=== PATIENT | female | born 1965 | race Caucasian/White ===

== ENCOUNTER 2021-06-09 12:36 | Observation (INO) | payer BC, SELFPAY ==
[2021-06-09 13:31] VITALS: BP 86/57; PULSE 84; RESP 19; TEMP 36.6; O2SAT 98; BMI 33.6
--- NOTE | 2021-06-09 14:27 | XRR_ITS ---
PROCEDURE INFORMATION: Exam: XR Chest Exam date and time: 06/09/2021 2:27 PM Age: 55 years old Clinical indication: Other: AMS TECHNIQUE: Imaging protocol: XR of the chest. Views: 1 view. COMPARISON: No relevant prior studies available. FINDINGS: Lungs: Unremarkable. No consolidation. Pleural spaces: Unremarkable. No pleural effusion. No pneumothorax. Heart/Mediastinum: Unremarkable. No cardiomegaly. Bones/joints: Unremarkable. XR/XR chest 1V portable [id number] IMPRESSION: No acute findings.
[2021-06-09 17:06] LABS: Basophils % 0.4 %; Eosinophils % 0.1 %; Hematocrit 35.4 % (37.0-47.0); Hemoglobin 11.6 g/dL (11.5-15.3); Lymphocytes # 1.7 10^3/uL (0.8-4.8); Lymphocytes % 15.4 %; Mean Corpuscular HGB Conc 32.8 g/dL (30.0-36.0); Mean Corpuscular Hemoglobin 28.6 pg (28.0-34.0); Mean Corpuscular Volume 87.2 fL (81-99); Mean Platelet Volume 10.2 fL (7.4-10.4); Monocytes # 0.6 10^3/uL (0.2-0.9); Monocytes % 5.3 %; Neutrophils # 8.56 10^3/uL (1.8-7.7); Neutrophils % 78.5 %; Nucleated Red Blood Cells % 0 %; Platelet Count 353 10^3/cmm (130-400); Red Blood Count 4.06 10^6/uL (4.1-5.3); Red Cell Distribution Width 13.1 % (12.1-15.1); White Blood Count 10.9 10^3/uL (4.0-10.0)
[2021-06-09 18:10] LABS: Alanine Aminotransferase 10 U/L (0-33); Albumin Level 3.9 g/dL (3.5-5.2); Alkaline Phosphatase 88 IU/L (35-105); Anion Gap 24.4 (5-19); Aspartate Amino Transferase 17 U/L (0-32); Blood Urea Nitrogen 46 mg/dL (6-20); Calcium 8.4 mg/dL (8.5-10.5); Carbon Dioxide 16 mmol/L (22-29); Chloride 92 mmol/L (98-107); Globulin 3.2 g/dL (1.3-4.6); Glomerular Filtration Rate 10.2 mL/min (90-130); Glucose 73 mg/dL (65-115); Osmolality Calculated 276 mOsm/kg (285-295); Potassium 4.4 mmol/L (3.5-5.1); Sodium 128 mmol/L (136-145); Total Bilirubin 0.2 mg/dL (0.15-1.2); Total Protein 7.1 g/dL (6.6-8.7)
[2021-06-09 18:49] LABS: Lactic Sepsis W/Reflex 4.3 mmol/L (0.5-2.2)
[2021-06-09 18:50] LABS: Reflex Lactate Order REFLEX LACTIC ORDERD
[2021-06-09 19:14] VITALS: PULSE 96; RESP 17; O2SAT 96
--- NOTE | 2021-06-09 19:25 | W.ED.GENADLT ---
HPI - General Adult General: Chief complaint: General Medical Stated complaint: Zoning out, not sleeping, discombobulated Time Seen by Provider: 06/09/21 19:25 History of Present Illness: HPI narrative: 55-year-old female comes in today with complaints of urinary tract infection since . Son reports that patient had some episodes of confusion since , they had went to [place] ER and was diagnosed with a urinary tract infection. Patient was placed on Bactrim and recommended to follow-up. Patient for the last 2 days has had episodes of nausea and vomiting and worsening confusion at times. The son brought her in today due to these increased concerns. Patient at this time is alert and oriented and responds appropriately to questions. Patient has some emesis noticed in the basin. Patient reports that she has had worsening emesis last 2 days. Son is at bedside. Associated symptoms: Reports confusion, nausea and vomiting Review of Systems General: Reports: 10 or more systems reviewed and unremarkable except in HPI and below GI: Reports: nausea and vomiting Neuro: Reports: confusion Physical Exam Const: COMMON NORMALS: no acute distress and patient oriented x3 GENERAL APPEARANCE: cooperative HENMT: COMMON NORMALS: normocephalic, TM's normal bilaterally and Normal external nose present HEAD & SCALP: normal to inspection and normocephalic NOSE: Normal external nose present TYMPANIC MEMBRANE: TM's normal bilaterally MOUTH: Normal oral and palatal mucosa present THROAT: posterior oropharynx normal Eye: GENERAL EYE: appearance normal, both eyes and all related structures Neck/C-Spine: COMMON NORMALS: full ROM Lymph: LYMPHATIC: no lymphadenopathy noted Chest: COMMONS NORMALS: normal inspection of the chest Resp: COMMON NORMALS: normal respiratory effort EFFORT & INSPECTION: Yes able to speak in complete sentences Cardio: COMMON NORMALS: regular rate and regular rhythm RATE: regular rate RHYTHM: regular rhythm GI: COMMON NORMALS: non-tender : COMMON NORMALS: Yes no CVA tenderness BLADDER/KIDNEY EXAM: Yes no CVA tenderness Back/Pelvis: COMMON NORMALS: no CVA tenderness and thoracic and lumbar spine normal to inspection Extremity: COMMON NORMALS: normal to inspection Neuro: COMMON NORMALS: patient oriented x3 and moves all extremities Psych: COMMON NORMALS: mental status grossly normal and cooperative Skin: COMMON NORMALS: no rashes or lesions noted GENERAL SKIN EXAM: no rashes or lesions noted Course Vital Signs: Vital signs: Vital Signs Temperature 97.8 F 06/09/21 13:31 Pulse Rate 97 06/09/21 22:02 Respiratory Rate 8 L 06/09/21 22:02 Blood Pressure 134/78 06/09/21 22:02 Pulse Oximetry 95 06/09/21 22:02 MDM - General Adult MDM Narrative: Medical decision making narrative: Patient comes in today for complaints of nausea and vomiting for the last 2 days. Patient has been ill with a urinary tract infection since last . Patient was started on Bactrim at another emergency room on . Patient has a history of diabetes mellitus and neuropathy. On exam we do note patient has emesis in a basin next to her. Respirations are even lungs are clear to auscultation no CVA tenderness. Abdomen soft nontender. Differential diagnosis includes but not limited to urosepsis, urinary tract infection, dehydration. Laboratory values showed a 10,000 white count, creatinine was up to 4.5, lactate was 4.3. Patient was given 1 g of Rocephin, and 1 L of IV fluids and monitored. Patient had a Quiros catheter established for maintenance. Reviewed exam with Dr. Moncada who agreed to admission the patient for further treatment. Patient needs IV fluids appropriate antibiotics and repeat labs Lab Data: Labs: Lab Results 06/09/21 06/09/21 06/09/21 Range/Units 16:55 16:55 16:55 WBC 10.9 H (4.0-10.0) 10^3/ uL RBC 4.06 L (4.1-5.3) 10^6/u L Hgb 11.6 (11.5-15.3) g/dL Hct 35.4 L (37.0-47.0) % MCV 87.2 (81-99) fL MCH 28.6 (28.0-34.0) pg MCHC 32.8 (30.0-36.0) g/dL RDW 13.1 (12.1-15.1) % Plt Count 353 (130-400) 10^3/c mm MPV 10.2 (7.4-10.4) fL Neut % (Auto) 78.5 % Lymph % (Auto) 15.4 % [place] % (Auto) 5.3 % Eos % (Auto) 0.1 % Baso % (Auto) 0.4 % Neut # (Auto) 8.56 H (1.8-7.7) 10^3/u L Lymph # (Auto) 1.7 (0.8-4.8) 10^3/u L [place] # (Auto) 0.6 (0.2-0.9) 10^3/u L Eos # (Auto) 0.0 (0.0-0.8) 10^3/u L Baso # (Auto) 0.0 (0.0-0.1) 10^3/u L Nucleated RBC % (a uto) 0 % Nucleated RBCs # 0.0 /100WBC Specimen Type Sample Site ABG pH (7.35-7.45) ABG pCO2 (35-45) mmHg ABG pO2 (80.0-100.0) mmH g ABG HCO3 (22-26) mmol/L ABG Base Excess (-2.0-2.0) mmol/ L Reagan Test Hematocrit (37-47) % O2 Delivery Device FiO2 % Dry Cell Assembly Machine Tender ID Sodium 128 L (136-145) mmol/L Potassium 4.4 (3.5-5.1) mmol/L Chloride 92 L (98-107) mmol/L Carbon Dioxide 16 L (22-29) mmol/L Anion Gap 24.4 H (5-19) BUN 46 H (6-20) mg/dL Creatinine 4.5 H (0.5-0.9) mg/dL GFR Calculation 10.2 L (90-130) mL/min Glucose 73 (65-115) mg/dL Calculated Osmolal ity 276 L (285-295) mOsm/k g Lactic Acid 4.3 H* (0.5-2.2) mmol/L Lactic Acid (Sepsi s) (0.5-2.2) mmol/L Calcium 8.4 L (8.5-10.5) mg/dL Total Bilirubin 0.2 (0.15-1.2) mg/dL AST 17 (0-32) U/L ALT 10 (0-33) U/L Alkaline Phosphata se 88 (35-105) IU/L Total Protein 7.1 (6.6-8.7) g/dL Albumin 3.9 (3.5-5.2) g/dL Globulin 3.2 (1.3-4.6) g/dL Urine Color (Yellow) Urine Appearance (CLEAR) Urine pH (5-7) Ur Specific Gravit y (1.005-1.030) Urine Protein (Negative) Urine Glucose (UA) (Normal) Urine Ketones (Negative) Urine Blood (Negative) Urine Nitrate (Negative) Urine Bilirubin (Negative) Urine Urobilinogen (Negative) mg/dL Ur Leukocyte Ceci ase (Negative) Urine RBC (0-2) /hpf Urine WBC (0-5) /hpf Ur Squamous Epith Cells (0-5) /hpf Amorphous Sediment /hpf Urine Bacteria (NONE) /hpf Hyaline Casts /lpf Coarse Granular Ca sts /lpf Urine Mucus /hpf 06/09/21 06/09/21 06/09/21 Range/Units 20:35 21:00 21:10 WBC (4.0-10.0) 10^3/ uL RBC (4.1-5.3) 10^6/u L Hgb (11.5-15.3) g/dL Hct (37.0-47.0) % MCV (81-99) fL MCH (28.0-34.0) pg MCHC (30.0-36.0) g/dL RDW (12.1-15.1) % Plt Count (130-400) 10^3/c mm MPV (7.4-10.4) fL Neut % (Auto) % Lymph % (Auto) % [place] % (Auto) % Eos % (Auto) % Baso % (Auto) % Neut # (Auto) (1.8-7.7) 10^3/u L Lymph # (Auto) (0.8-4.8) 10^3/u L [place] # (Auto) (0.2-0.9) 10^3/u L Eos # (Auto) (0.0-0.8) 10^3/u L Baso # (Auto) (0.0-0.1) 10^3/u L Nucleated RBC % (a uto) % Nucleated RBCs # /100WBC Specimen Type Arterial Sample Site Brachial, right ABG pH 7.28 L (7.35-7.45) ABG pCO2 39.3 (35-45) mmHg ABG pO2 77.1 L (80.0-100.0) mmH g ABG HCO3 18.6 L (22-26) mmol/L ABG Base Excess -7.6 L (-2.0-2.0) mmol/ L Reagan Test Pos Hematocrit 38.5 (37-47) % O2 Delivery Device Room air FiO2 21.0 % Dry Cell Assembly Machine Tender ID yorna Sodium (136-145) mmol/L Potassium (3.5-5.1) mmol/L Chloride (98-107) mmol/L Carbon Dioxide (22-29) mmol/L Anion Gap (5-19) BUN (6-20) mg/dL Creatinine (0.5-0.9) mg/dL GFR Calculation (90-130) mL/min Glucose (65-115) mg/dL Calculated Osmolal ity (285-295) mOsm/k g Lactic Acid (0.5-2.2) mmol/L Lactic Acid (Sepsi s) 3.2 H (0.5-2.2) mmol/L Calcium (8.5-10.5) mg/dL Total Bilirubin (0.15-1.2) mg/dL AST (0-32) U/L ALT (0-33) U/L Alkaline Phosphata se (35-105) IU/L Total Protein (6.6-8.7) g/dL Albumin (3.5-5.2) g/dL Globulin (1.3-4.6) g/dL Urine Color Hope (Yellow) Urine Appearance Clear (CLEAR) Urine pH 5 (5-7) Ur Specific Gravit y 1.020 (1.005-1.030) Urine Protein 1+ H (Negative) Urine Glucose (UA) Norm (Normal) Urine Ketones Negative (Negative) Urine Blood Neg (Negative) Urine Nitrate Positive H (Negative) Urine Bilirubin 2+ H (Negative) Urine Urobilinogen 4 H (Negative) mg/dL Ur Leukocyte Ceci ase Negative (Negative) Urine RBC 0-4 H (0-2) /hpf Urine WBC 0-4 H (0-5) /hpf Ur Squamous Epith Cells 0-4 H (0-5) /hpf Amorphous Sediment 1+ /hpf Urine Bacteria Trace (NONE) /hpf Hyaline Casts 0-4 H /lpf Coarse Granular Ca sts 0-4 H /lpf Urine Mucus Trace /hpf Discharge Plan Discharge Patient Disposition: Placed in Observation Clinical Impression: KYE (acute kidney injury) UTI (urinary tract infection) Qualifiers: Urinary tract infection type: acute cystitis Hematuria presence: without hematuria Qualified Code(s): N30.00 - Acute cystitis without hematuria Coding Level of Care Code ED [employer] Driver for [employer]g Fwd Exam Comprehensive
--- NOTE | 2021-06-09 19:26 | CTR_ITS ---
PROCEDURE INFORMATION: Exam: CT Abdomen And Pelvis Without Contrast Exam date and time: 06/09/2021 7:26 PM Age: 55 years old Clinical indication: Other: [place]; Additional info: [place], urosepesis TECHNIQUE: Imaging protocol: Computed tomography of the abdomen and pelvis without contrast. Radiation optimization: All CT scans at this facility use at least one of these dose optimization techniques: automated exposure control; mA and/or kV adjustment per patient size (includes targeted exams where dose is matched to clinical indication); or iterative reconstruction. COMPARISON: CR XR chest 1V portable [id number] 06/09/2021 2:44 PM RADIATION DOSE METRICS: Total DLP (mGy-cm): 1511.94 FINDINGS: Lungs: Bilateral pulmonary nodularity with largest finding measuring 5 mm. Mediastinal space: Mild thickening of distal esophagus can represent inflammatory change and/or small hiatal hernia. Liver: Normal. No mass. Gallbladder and bile ducts: Normal. No calcified stones. No ductal dilation. Pancreas: Normal. No ductal dilation. Spleen: Normal. No splenomegaly. Adrenal glands: Low-density nodule measuring 2 cm at right adrenal gland is consistent with adenoma. Kidneys and ureters: Normal. No hydronephrosis. Stomach and bowel: Unremarkable. No obstruction. No mucosal thickening. Appendix: No evidence of appendicitis. Intraperitoneal space: Unremarkable. No free air. No significant fluid collection. Vasculature: Vascular calcifications are noted. No abdominal aortic aneurysm. Lymph nodes: Unremarkable. No enlarged lymph nodes. Urinary bladder: Unremarkable as visualized. Reproductive: Unremarkable as visualized. Bones/joints: No acute fracture. Soft tissues: Unremarkable. CT/CT kidney stone [id number] IMPRESSION: Mild thickening of distal esophagus can represent inflammatory change and/or small hiatal hernia. Right adrenal adenoma. Bilateral pulmonary nodularity; For patients at low risk (minimal or absent history of smoking and of other known risk factors), no routine follow-up is indicated. For patients at high risk (history of smoking or of other known risk factors), consider optional CT Chest at 12 months. (Reference: Armen) References: gus Gomez al. Guidelines for Management of Incidental Pulmonary Nodules Detected on CT Images: From the Fleischner Society 2017. Radiology. 2017;284(1):228-243. COMMENTS: Consistent with the [place] [employer]'s Incidental Findings Committee white paper (J Am Nicolasa Radiol 2017): For any incidental adrenal lesion greater than 1 cm but less than 4 cm classified in this report as benign, likely benign, or containing fat (including classification as an adenoma or myelolipoma), no follow-up imaging is recommended per consensus recommendations based on imaging criteria. Further lab evaluation could be pursued if warranted based on clinical findings. Radiation Dose CTDIVOL = (mGy): DLP = 1511.94 (mGy-cm)
--- NOTE | 2021-06-09 19:46 | CTR_ITS ---
PROCEDURE INFORMATION: Exam: CT Head Without Contrast Exam date and time: 06/09/2021 7:46 PM Age: 55 years old Clinical indication: Altered mental status/memory loss; Confusion or disorientation TECHNIQUE: Imaging protocol: Computed tomography of the head without contrast. Radiation optimization: All CT scans at this facility use at least one of these dose optimization techniques: automated exposure control; mA and/or kV adjustment per patient size (includes targeted exams where dose is matched to clinical indication); or iterative reconstruction. COMPARISON: No relevant prior studies available. RADIATION DOSE METRICS: Total DLP (mGy-cm): 1941.04 FINDINGS: Brain: No hemorrhage. Unremarkable white matter. No mass effect. Mild diffuse cerebral atrophy. Cerebral ventricles: No ventriculomegaly. Paranasal sinuses: Visualized sinuses are unremarkable. No fluid levels. Mastoid air cells: Visualized mastoid air cells are well aerated. Bones/joints: Unremarkable. No acute fracture. Soft tissues: Unremarkable. CT/CT head wo con* [id number] IMPRESSION: No acute intracranial abnormality. Radiation Dose CTDIVOL = (mGy): DLP = 1941.04 (mGy-cm)
[2021-06-09] MEDS: sodium chloride 0.9% 1,000 ML 999 ML IV (19:47)
[2021-06-09] MEDS: cefTRIAXone 1,000 MG in sodium chloride 0.9% (plus) 50 ML 100 MG IV (19:49)
[2021-06-09 20:47] LABS: ABG PCO2 39.3 mmHg (35-45); ABG PH Result 7.28 (7.35-7.45); Arterial Blood Gas Hematocrit 38.5 % (37-47); Base Excess ABG -7.6 mmol/L (-2.0-2.0); Blood Gas Allen Test Pos; Blood Gas Sample Site Brachial, right; Blood Gas Sample Type Arterial; HCO3 ABG 18.6 mmol/L (22-26); Oxygen Device ROOM AIR; PO2 ABG 77.1 mmHg (80.0-100.0)
[2021-06-09] MEDS: ondansetron 2 mg/ML SDV 2 mL 4 MG IVP (21:00)
[2021-06-09 21:15] LABS: Add Urine Microscopic? YES; Amorphous Sediment Urine 1+ /hpf; Bacteria Urine TRACE /hpf; Bilirubin Urine 2+ (Negative); Blood Urine Neg (Negative); Glucose Urine UA Norm (Normal); Hyaline Casts Urine 0-4 /lpf; Ketones Urine Negative (Negative); Leukocyte Esterase Urine Negative (Negative); Mucus Urine TRACE /hpf; Nitrate Urine Positive (Negative); Protein Urine 1+ (Negative); RBC Urine 0-4 /hpf (0-2); Squamous Epithelial Cell Urine 0-4 /hpf (0-5); Urine Appearance Clear (CLEAR); Urine Color Orange (Yellow); Urobilinogen Urine 4 mg/dL (Negative); WBC Urine 0-4 /hpf (0-5); pH Urine 5 (5-7)
[2021-06-09 21:16] LABS: Add Urine Culture? No; Coarse Granular Casts Urine 0-4 /lpf
[2021-06-09 21:42] LABS: Lactic Acid level (Lactate) 3.2 mmol/L (0.5-2.2)
[2021-06-09 21:48] VITALS: BP 180/108; PULSE 88; RESP 16; O2SAT 98
[2021-06-09 22:02] VITALS: BP 134/78; PULSE 97; RESP 8; O2SAT 95
--- NOTE | 2021-06-09 22:34 | P.HP_ITS ---
Providers/Chief Complaint Primary Care Provider: DORA Abdi Chief Complaint: Zoning out, not sleeping, discombobulated History of Present Illness Laura Caal is a 55 year old female who was getting Bactrim for her UTI presente d today with chief complaint nausea, vomiting and confusion. Her symptoms started about 4 days ago, When Son Noticed That She Was Confused and kept staring at the ceiling. No strokelike symptoms were noticed. Her PCP started her on Bactrim for UTI which she has been taking. She decided to come to the hospital for worsening of her nausea and vomiting. In total she has had 10 episodes in last 3 days. She has not noticed any fever, rigors or chills. She is not vaccinated for COVID-19 and is not planning to in future as well. No recent diarrhea, chest pain, shortness of breath or rhinorrhea. Diagnostics in the ER revealed KYE, dehydration, hyponatremia and UTI, no signs of hydronephrosis Patient was complaining of muscle cramps Because of her neuropathy she is using a scooter at home who came into the wheelchair today in the ER, attributing neuropathy to her diabetes, son is stating that her speech and mentation is better now Review of Systems Const: Reports: chills, body aches and fatigue Eyes: Denies: change in vision ENMT: Denies: throat pain Card: Denies: chest pain Resp: Denies: dyspnea GI: Denies: abdominal pain : Denies: flank pain Musc: Denies: neck pain Skin/Breast: Denies: rash Neuro: Denies: headache(s) Psych: Reports: anxiety Endo: Denies: polyuria Nik/Lymph: Denies: easy bruising All/Imm: Denies: urticaria Medications/Allergies Home Medications Medication Instructions Recorded Confirmed Last Taken Type acetaminophen [Tylenol Extra 1,000 mg PO Q4H PRN 06/09/21 06/09/21 Unknown History Strength] amitriptyline 25 mg PO DAILY 06/09/21 06/09/21 06/09/21 History aspirin [Aspir-81] 81 mg PO DAILY 06/09/21 06/09/21 06/09/21 History atorvastatin 10 mg PO DAILY 06/09/21 06/09/21 06/09/21 History baclofen 10 mg PO BID 06/09/21 06/09/21 06/09/21 History cyanocobalamin (vitamin B-12) 5,000 mcg SUBLINGUAL DAILY 06/09/21 06/09/21 06/09/21 History [Vitamin B-12] ergocalciferol (vitamin D2) 1,250 mcg PO Q7D 06/09/21 06/09/21 06/02/21 History [Vitamin D2] fexofenadine [Alena] 180 mg PO DAILY 06/09/21 06/09/21 06/09/21 History gabapentin 300 mg PO BID 06/09/21 06/09/21 06/09/21 History krill oil 1,000 mg PO DAILY 06/09/21 06/09/21 06/09/21 History metformin 1,000 mg PO BID 06/09/21 06/09/21 06/09/21 History phenazopyridine [Azo Urinary Pain 97.5 mg PO DAILY PRN 06/09/21 06/09/21 06/09/21 History Relief] sulfamethoxazole-trimethoprim 1 tab PO BID 06/09/21 06/09/21 06/09/21 History Allergies Allergy/AdvReac Type Severity Reaction Status Date / Time No Known Allergies Allergy Verified 06/09/21 13:29 PFSH Acute PFSH: Medical History Diabetes Neuropathy Surgical History No history of previous surgery Family History Other Cancer Social History Smoking and tobacco status: never smoked Alcohol intake: never Substance/Drug Use: never Household members: children Housing: House Vitals/I&O/Wt Last Vital Signs Temp 97.8 F 06/09/21 13:31 Pulse 97 06/09/21 22:02 Resp 8 L 06/09/21 22:02 BP 134/78 06/09/21 22:02 Pulse Ox 95 06/09/21 22:02 06/09/21 06/09/21 06/09/21 06:59 14:59 22:59 Intake Total 50 / 50 Balance 50 / 50 Weight last 48 hrs Weight 80.739 kg Physical Exam Narrative: EXAM NARRATIVE: Middle-age female Overweight Appears stated age Clinically does not look fluid overloaded or dehydrated Quiros catheter draining orange-colored urine Patient not in any distress S1, S2 sinus rhythm Afebrile Abdomen soft nontender bowel sound present No CVA tenderness Left leg swollen as compared to right EOMI, PERRLA GCS 15 no acute neurological deficit Urinary Catheter Management^: Quiros: Cath Placed During This Visit: yes Urinary Catheter Date of Insertion: 06/09/21 Urinary Catheter Time of Insertion: 21:00 Data : 06/09/21 16:55 06/09/21 16:55 Micro: Microbiology 06/09/21 16:40 Blood Culture - Preliminary Blood SPECIMEN COLLECTED 06/09/21 16:55 Blood Culture - Preliminary Blood SPECIMEN COLLECTED A&P Assessment and plan (1) KYE (acute kidney injury): Status: Acute (2) UTI (urinary tract infection): Status: Acute Qualifiers: Hematuria presence: without hematuria Urinary tract infection type: acute cystitis Qualified Code(s): N30.00 - Acute cystitis without hematuria (3) Hyponatremia: Status: Acute (4) Sepsis: Status: Acute Additional A&P Information KYE with UTI High lactic acid, tachypnea and leukocytosis met criteria for sepsis No hydronephrosis evident on CT abdomen pelvis Patient has been experiencing nausea and vomiting not able to tolerate p.o. antibiotics Discontinue Bactrim Start her on ceftriaxone Follow-up with urine culture, check A1c level, Remove Quiros catheter KYE seems secondary to dehydration due to multiple episodes of emesis at home in total she has had 10 episodes, Zofran every 6 hours as needed, hold her antipsychotic and SSRI/SNRI because of worsening KYE Acute hyponatremia Secondary to dehydration and emesis Continue normal saline at lower rate for now Patient is complaining of muscle twitching/cramps Currently on lower rate of normal saline fluid resuscitation Consistent carb diet DVT prophylaxis Heparin Full code Attestations Medical Necessity Statement*: Expected discharge within 48 hours for management of sepsis related to UTI Time Spent in Patient Care: 16 - 35 minutes Coding Level of Care Code Acute Diagnostic Technician for [facility] Fwd Diagnoses KYE (acute kidney injury) N17.9 UTI (urinary tract infection) N30.00 Hematuria presence: without hematuria Urinary tract infection type: acute cystitis Hyponatremia E87.1 Sepsis A41.9
[2021-06-09 23:10] VITALS: BP 172/99; PULSE 99; RESP 15; O2SAT 99
[2021-06-09] MEDS: sodium chloride 0.9% 1,000 ML 75 ML IV (23:51)
[2021-06-10] VITALS (9 sets, daily range): BP systolic 97–173; BP diastolic 68–95; PULSE 90–106; RESP 9–20; TEMP 36.4–36.7; O2SAT 96–100
--- NOTE | 2021-06-10 00:38 | PC.NURSE ---
Resting, eyes closed, easily awakened. Lights turned down for comfort. No other needs identified at this time. VSS.
--- NOTE | 2021-06-10 04:10 | USCV_ITS ---
Laura Caal Age: 55 Gender: F : 1965 Exam Date: 06/10/2021 06:33 Ordering Phys: Feroz Moncada MD Technologist: LEONID Exam Location: [facility] [place]_ Indication: SWELLING PROCEDURES: Venous duplex imaging was performed in bilateral lower extremities. The following venous structures were evaluated: common femoral vein, profunda vein, proximal portion of the greater saphenous vein, superficial femoral vein, and the popliteal vein. In addition, the posterior tibial and peroneal trunk were evaluated. Serial compression, augmentation maneuvers, and spectral Doppler flow evaluation were performed. FINDINGS: Normal 2-D Doppler and augmentation and compressibility throughout the lower extremity venous structures. Additional imaging through the proximal calf veins also reveals no thrombus. Limited evaluation of the greater saphenous vein is patent with no thrombus. CONCLUSIONS No DVT bilateral lower extremities. Dr. Kelsi Martinez DO (Electronically Signed) Final Date: 10 June 2021 08:45 S
[2021-06-10] MEDS: heparin 5,000 unit/mL INJ 1 mL 5000 UNIT SUBCUT ×3 (04:37→20:41)
--- NOTE | 2021-06-10 04:46 | PC.NURSE ---
Repositioned for comfort.
--- NOTE | 2021-06-10 06:17 | PC.NURSE ---
Assisted pt onto bedside toilet for bm.
[2021-06-10 09:04] LABS: Glucose Point of Care 54 mg/dL (70-110)
[2021-06-10 09:33] LABS: Blood Urea Nitrogen 43 mg/dL (6-20); Carbon Dioxide 20 mmol/L (22-29); Chloride 96 mmol/L (98-107); Creatine Phosphokinase 181 U/L (26-192); Glomerular Filtration Rate 13.2 mL/min (90-130); Glucose 67 mg/dL (65-115); Osmolality Calculated 281 mOsm/kg (285-295); Sodium 131 mmol/L (136-145)
[2021-06-10] MEDS: amlodipine 10 mg Tablet PO (10:25)
[2021-06-10] MEDS: aspirin 81 mg EC Tablet PO (10:25)
--- NOTE | 2021-06-10 10:25 | PC.CHAP ---
Pastoral Care Encounter/Spiritual Assessment Type of Contact [] Declined worm packer visit [] Patient/Family/Request visit [] Outpatient visit [] Follow-up visit [] Physician referral [] Code/Alert [x] Routine visit [] Staff referral [] Actively dying [] Patient sleeping [] Family support [] [] Out of room [] Palliative care [] [] Receiving care in room [] Pre-surgical visit [] Trauma [] Long length of stay [] ICU visit [] Other: Relational/Emotional Strength [x] Patient feels connected with others/family/visitors/staff [] Distress [] Loneliness/isolation [] Abandonment Spirituality of Patient [x] Person of Jahaira [] Attends Adventist of their Jahaira [x] Believes in Prayer [x] Reads Bible or Scientology materials [] There are Spiritual issues to be addressed Momd Teacher Interventions [x] Prayer [x] Active listening [x] Non-anxious presence [x] Spiritual/emotional support [] Crisis/trauma care [] Spiritual counseling [] Bereavement support [] Provided bereavement packet [] Provided Bible/devotional materials [] Provided toy/stuffed animal, coloring book to patient or family member [] Provided Communion [] Anointing/[place] [] Salvation [x] Completed spiritual assessment [] Other: Impact on Illness or Injury [] Angry [] Fearful [] Anxious [] Often cries [] Exhaustion [] Unable to work [] Unable to attend congregation [] Unable to walk/stand [] Unable to read [] Unable to drive [] Unable to eat/drink [] Unable to sleep [] Unable to be with family [] Patient intubated [] Other: Summary Time spent with patient 15 min
[2021-06-10 10:37] LABS: Glucose Point of Care 53 mg/dL (70-110)
[2021-06-10 11:25] LABS: Glucose Point of Care 76 mg/dL (70-110)
--- NOTE | 2021-06-10 14:13 | P.PN_ITS ---
Subjective Subjective: Interval history: Laura reports she is feeling a little bit better. Still somewhat foggy. No chest pain, or shortness of breath. History and physical was reviewed. Medications: Reviewed: Yes Vitals/I&O/Wt Last Vital Signs Temp 97.5 F L 06/10/21 12:00 Pulse 97 06/10/21 12:00 Resp 18 06/10/21 12:00 BP 173/93 06/10/21 12:00 Pulse Ox 100 06/10/21 12:00 06/09/21 06/10/21 06/10/21 22:59 06:59 14:59 Intake Total 50 / 50 1000 / 1050 728.75 / 728.75 Output Total 1999 Balance 50 / 50 -1000 / -950 728.75 / 728.75 Weight last 48 hrs Weight 80.739 kg Physical Exam Narrative: EXAM NARRATIVE: General exam no apparent distress Neck is supple no lymphadenopathy or thyromegaly Cardiovascular regular rate and rhythm without murmur Lungs clear Abdomen is soft with positive bowel sounds Extremities no cyanosis clubbing or edema Urinary Catheter Management^: Quiros: Cath Placed During This Visit: yes Urinary Catheter Date of Insertion: 06/09/21 Urinary Catheter Time of Insertion: 21:00 Data : 06/09/21 16:55 06/10/21 08:45 Micro: Microbiology 06/09/21 16:40 Blood Culture - Preliminary Blood SPECIMEN COLLECTED 06/09/21 16:55 Blood Culture - Preliminary Blood SPECIMEN COLLECTED A&P Assessment and plan (1) KYE (acute kidney injury): Significant acute kidney injury on presentation. Somewhat better with creatinine of 3.6 down from 4.5 today. She is making urine. Leave Quiros in at this time Initiate Flomax No hydronephrosis on CT scan but did have some over distention of bladder per my read Continue hydration with normal saline Status: Acute (2) UTI (urinary tract infection): Continue Rocephin Urine culture Urinalysis not impressive Status: Acute Qualifiers: Hematuria presence: without hematuria Urinary tract infection type: acute cystitis Qualified Code(s): N30.00 - Acute cystitis without hematuria (3) Hyponatremia: Improving with hydration. Likely secondary to renal failure Status: Acute (4) Sepsis: Resolved Status: Acute Additional A&P Information Diabetes mellitus. Insulin sliding scale History of neuropathy. Elavil discontinued as this could cause urinary retention. Baclofen dose will be decreased. Neurontin dose will be decreased. Metabolic encephalopathy, acute. Likely related to renal failure. Resolving. Heparin for DVT prophylaxis Full code Attestations Medical Necessity Statement*: Needs continued hospital stay secondary to acute kidney injury Coding Level of Care Code Acute Cig[employer]ader for Chg Fwd Diagnoses KYE (acute kidney injury) N17.9 UTI (urinary tract infection) N30.00 Hematuria presence: without hematuria Urinary tract infection type: acute cystitis Hyponatremia E87.1 Sepsis A41.9
[2021-06-10 16:54] LABS: Glucose Point of Care 131 mg/dL (70-110)
[2021-06-10] MEDS: sodium chloride 0.9% 1,000 ML 100 ML IV (17:48)
[2021-06-10] MEDS: gabapentin 100 mg Capsule PO (18:18)
[2021-06-10] MEDS: cefTRIAXone 1,000 MG in sodium chloride 0.9% (plus) 50 ML 100 MG IV (20:42)
[2021-06-10] MEDS: tamsulosin 0.4 mg Capsule PO (20:42)
[2021-06-10 21:13] LABS: Glucose Point of Care 143 mg/dL (70-110)
[2021-06-11 00:25] VITALS: BP 163/88; PULSE 96; RESP 16; TEMP 36.8; O2SAT 99
[2021-06-11 03:10] VITALS: BP 160/84; PULSE 104; RESP 16; TEMP 36.6; O2SAT 98
[2021-06-11] MEDS: sodium chloride 0.9% 1,000 ML 100 ML IV (04:12)
[2021-06-11] MEDS: heparin 5,000 unit/mL INJ 1 mL 5000 UNIT SUBCUT (04:14)
[2021-06-11 06:05] LABS: Basophils % 0.5 %; Eosinophils # 0.1 10^3/uL (0.0-0.8); Eosinophils % 1.4 %; Hematocrit 32.7 % (37.0-47.0); Lymphocytes # 1.7 10^3/uL (0.8-4.8); Lymphocytes % 30.4 %; Mean Corpuscular HGB Conc 33.6 g/dL (30.0-36.0); Mean Corpuscular Hemoglobin 28.6 pg (28.0-34.0); Mean Corpuscular Volume 84.9 fL (81-99); Mean Platelet Volume 10.5 fL (7.4-10.4); Monocytes # 0.5 10^3/uL (0.2-0.9); Neutrophils # 3.31 10^3/uL (1.8-7.7); Neutrophils % 58.5 %; Nucleated Red Blood Cells % 0 %; Platelet Count 315 10^3/cmm (130-400); Red Blood Count 3.85 10^6/uL (4.1-5.3); White Blood Count 5.7 10^3/uL (4.0-10.0)
[2021-06-11 06:22] LABS: Anion Gap 14.9 (5-19); Blood Urea Nitrogen 32 mg/dL (6-20); Carbon Dioxide 24 mmol/L (22-29); Chloride 104 mmol/L (98-107); Glomerular Filtration Rate 22.2 mL/min (90-130); Glucose 178 mg/dL (65-115); Osmolality Calculated 299 mOsm/kg (285-295); Potassium 3.9 mmol/L (3.5-5.1); Sodium 139 mmol/L (136-145)
[2021-06-11 06:53] LABS: Glucose Point of Care 177 mg/dL (70-110)
[2021-06-11 08:00] VITALS: BP 117/66; PULSE 97; RESP 18; TEMP 36.6; O2SAT 93
[2021-06-11] MEDS: gabapentin 100 mg Capsule PO (09:00)
[2021-06-11] MEDS: amlodipine 10 mg Tablet PO (09:00)
[2021-06-11] MEDS: aspirin 81 mg EC Tablet PO (09:00)
--- NOTE | 2021-06-11 10:40 | PC.CHAP ---
Pastoral Care Encounter/Spiritual Assessment Type of Contact [] Declined urology physician assistant visit [] Patient/Family/Request visit [] Outpatient visit [] Follow-up visit [] Physician referral [] Code/Alert [x] Routine visit [] Staff referral [] Actively dying [] Patient sleeping [] Family support [] [] Out of room [] Palliative care [] [] Receiving care in room [] Pre-surgical visit [] Trauma [] Long length of stay [] ICU visit [] Other: Relational/Emotional Strength [] Patient feels connected with others/family/visitors/staff [] Distress [] Loneliness/isolation [] Abandonment Spirituality of Patient x[] Person of Jahaira [] Attends Quaker of their Jahaira [x] Believes in Prayer [] Reads Bible or Jain materials [] There are Spiritual issues to be addressed [place] [employer] Interventions [] Prayer [] Active listening [] Non-anxious presence [] Spiritual/emotional support [] Crisis/trauma care [] Spiritual counseling [] Bereavement support [] Provided bereavement packet [] Provided Bible/devotional materials [] Provided toy/stuffed animal, coloring book to patient or family member [] Provided Communion [] Anointing/[place] [] Salvation [x] Completed spiritual assessment [] Other: Impact on Illness or Injury [] Angry [] Fearful [] Anxious [] Often cries [] Exhaustion [] Unable to work [] Unable to attend uatsdin [] Unable to walk/stand [] Unable to read [] Unable to drive [] Unable to eat/drink [] Unable to sleep [] Unable to be with family [] Patient intubated [] Other: Summary 10 min Time spent with patient
[2021-06-11 11:52] LABS: Glucose Point of Care 148 mg/dL (70-110)
[2021-06-11 12:00] VITALS: BP 116/61; PULSE 95; RESP 16; TEMP 36.6; O2SAT 98
--- NOTE | 2021-06-11 12:19 | PC.NURSE ---
patient voided into toilet, accidentally missed the measuring hat. PVR bladder scan showed 21mL, Dr. Ramires notified.
--- NOTE | 2021-06-11 12:27 | PM.DCS ---
Discharge Providers Date of Admission: 06/10/21 04:10 Date of Discharge: June 11, 2021 Attending Provider at Admission: Feroz Moncada MD Attending Provider at Discharge: Rosales Ramires MD Primary Care Provider: DORA Abdi Diagnoses at Discharge Discharge Diagnosis (1) KYE (acute kidney injury): Status: Acute (2) UTI (urinary tract infection): Status: Acute Qualifiers: Hematuria presence: without hematuria Urinary tract infection type: acute cystitis Qualified Code(s): N30.00 - Acute cystitis without hematuria (3) Hyponatremia: Status: Acute (4) Sepsis: Status: Acute Reason for Visit Reason for Visit: Zoning out, not sleeping, discombobulated Hospital Course Hospital Course Laura presented to the hospital with confusion. She had recently been diagnosed with a urinary tract infection and given Bactrim. When she arrived to the emergency department she was found to be in acute renal failure. CT abdomen and pelvis demonstrated a somewhat distended bladder but no hydronephrosis or stone. Urinalysis was not impressive. She was started on ceftriaxone. Urine culture was obtained. Fluids were initiated. Bactrim stopped. Sedating medicine held or decreased. During the course of her hospital stay she rapidly improved. Her initial creatinine was 4.5, decreasing to 3.6 on close follow-up and then 2.3 on day of discharge. She was putting out a significant amount of urine. There were no significant electrolyte abnormalities noted after treatment as her hyponatremia went away. Urine culture preliminary was negative and no significant abnormalities to suggest UTI on urinalysis. She will therefore be discharged home. She will need a BMP in 3 to 5 days and follow-up with her primary care provider. She was instructed not to take any anti-inflammatories. A post void residual done prior to catheter removal demonstrated no significant urinary retention. She was instructed to return for any concerns. Many of her medications were reduced and/or discontinued secondary to the possibility of urinary retention with them. On follow-up with her primary care provider a decision can be made whether nephrology consultation is worthwhile depending upon her renal function. Physical Exam Narrative: EXAM NARRATIVE: General exam is no apparent distress Neck supple no lymphadenopathy or thyromegaly Cardiovascular regular in rhythm without murmur Lungs clear Abdomen is soft with positive bowel sounds Extremities no cyanosis clubbing or edema Urinary Catheter Management^: Quiros: Cath Placed During This Visit: yes Reason for Continuing Indwelling Catheter: Acute Urinary Retention or Obstruction Urinary Catheter Date of Insertion: 06/09/21 Urinary Catheter Time of Insertion: 21:00 Discharge Data Data Completed and Pending: Completed Studies During Hospitalization Category Date Time Status CT head wo con* 7 0450 Urgent Cat Scan 06/09/21 19:[address] kidney stone 7 4176 Urgent Cat Scan 06/09/21 19:26 Completed XR chest 1V [place] ble [id number] Urgent Exams 06/09/21 14:27 [place] [id number] Routin e Ultrasound 06/10/21 04:10 Completed Pending at discharge Category Date Time Status Blood Culture Sta t Lab 06/09/21 16:55 Results Urine Culture Sta t Lab 06/10/21 00:03 Results Labs from last 24 hours 06/11/21 06/11/21 06/11/21 11:03 06:22 05:16 WBC RBC Hgb Hct MCV MCH MCHC RDW Plt Count MPV Neut % (Auto) Lymph % (Auto) [place] % (Auto) Eos % (Auto) Baso % (Auto) Neut # (Auto) Lymph # (Auto) [place] # (Auto) Eos # (Auto) Baso # (Auto) Nucleated RBC % (a uto) Nucleated RBCs # Sodium 139 Potassium 3.9 Chloride 104 Carbon Dioxide 24 Anion Gap 14.9 BUN 32 H Creatinine 2.3 H GFR Calculation 22.2 L Glucose 178 H POC Glucose 148 H 177 H Calculated Osmolal ity 299 H Calcium 8.0 L 06/11/21 06/10/21 06/10/21 05:16 20:31 16:52 WBC 5.7 RBC 3.85 L Hgb 11.0 L Hct 32.7 L MCV 84.9 MCH 28.6 MCHC 33.6 RDW 13.0 Plt Count 315 MPV 10.5 H Neut % (Auto) 58.5 Lymph % (Auto) 30.4 [place] % (Auto) 9.0 Eos % (Auto) 1.4 Baso % (Auto) 0.5 Neut # (Auto) 3.31 Lymph # (Auto) 1.7 [place] # (Auto) 0.5 Eos # (Auto) 0.1 Baso # (Auto) 0.0 Nucleated RBC % (a uto) 0 Nucleated RBCs # 0.0 Sodium Potassium Chloride Carbon Dioxide Anion Gap BUN Creatinine GFR Calculation Glucose POC Glucose 143 H 131 H Calculated Osmolal ity Calcium Vitals: Last Vital Signs Temp 97.8 F 06/11/21 12:00 Pulse 95 06/11/21 12:00 Resp 16 06/11/21 12:00 BP 116/61 06/11/21 12:00 Pulse Ox 98 06/11/21 12:00 Discharge Plan Discharge Patient Disposition: Home Condition: Stable Prescriptions: New tamsulosin 0.4 mg Capsule 0.4 mg PO BEDTIME Qty: 30 RF: 0 baclofen 10 mg Tablet 5 mg PO BID PRN (Reason: Muscle Spasms) Qty: 30 RF: 0 gabapentin 100 mg Capsule 100 mg PO BID Qty: 60 RF: 0 Continued atorvastatin 10 mg tablet 10 mg PO DAILY RF: 0 fexofenadine 180 mg Tablet 180 mg PO DAILY RF: 0 aspirin 81 mg Tablet,Delayed Release (Dr/Ec) 81 mg PO DAILY RF: 0 Tylenol Extra Strength 500 mg Tablet 1,000 mg PO Q4H PRN (Reason: PAIN/HEADACHE) RF: 0 metformin 1,000 mg tablet 1,000 mg PO BID RF: 0 Vitamin D2 1,250 mcg (50,000 unit) capsule 1,250 mcg PO Q7D RF: 0 phenazopyridine 97.5 mg Tablet 97.5 mg PO DAILY PRN (Reason: Pain) RF: 0 Vitamin B-12 5,000 mcg Tablet, Sublingual 5,000 mcg SUBLINGUAL DAILY RF: 0 krill oil 500 mg Capsule 1,000 mg PO DAILY RF: 0 Discontinued sulfamethoxazole-trimethoprim 800-160 mg tablet 1 tab PO BID RF: 0 amitriptyline 50 mg tablet 25 mg PO DAILY RF: 0 baclofen 10 mg tablet 10 mg PO BID RF: 0 gabapentin 300 mg capsule 300 mg PO BID RF: 0 Discharge Orders: Discharge Order (Routine); Ordered 06/11/21 Ordered By: Rosales Ramires Referrals: Tori Wade FNP [Primary Care Provider] - 4-7 days (BMP on follow-up) Discharge Diet: Diabetic Discharge Activity: Increase activity as tolerated Patient Instructions: Opioid Safety Activity Restrictions/Additional Instructions: Encourage fluids. No anti-inflammatories. You may have Tylenol Reduction of medications as noted. Do not restart your Metformin, until approved by your primary care provider on follow-up after repeat BMP Discharge Attestations Time Spent in Discharge Care*: greater than 30 min Quality Metrics Clinical Quality Measures During this hospital stay, did patient experience: None Coding Level of Care Code Acute Chg FW DC note Diagnoses KYE (acute kidney injury) N17.9 UTI (urinary tract infection) N30.00 Hematuria presence: without hematuria Urinary tract infection type: acute cystitis Hyponatremia E87.1 Sepsis A41.9
[2021-06-11 15:40] VITALS: BP 116/61; PULSE 95; RESP 16; TEMP 36.6; O2SAT 98
--- NOTE | 2021-06-11 15:42 | PC.NURSE ---
Discharge Note Patient discharged to [home] via [private vehicle] accompanied by [son]. Discharge instructions reviewed with patient and/or compliance representative dealer. Mobile pharmacy medications and/or prescriptions provided. Belongings/home medications returned.
== END 2021-06-11 15:43 | disposition home or self-care (01) ==
LOC: ER 23:28 → ER IP 06-10 05:43 → MEDSURG 06-10 07:58
PROVIDERS: Physician Assistant; Admitting Provider Internal Medicine; Emergency Provider Nurse Practitioner Family; PCP Nurse Practitioner Family; Visit Provider Internal Medicine
DX: N17.9 Acute kidney failure, unspecified (principal); N30.00 Acute cystitis without hematuria; E87.1 Hypo-osmolality and hyponatremia; A41.9 Sepsis, unspecified organism; E11.40 Type 2 diabetes mellitus with diabetic neuropathy, unspecified; Z79.4 Long term (current) use of insulin; G93.41 Metabolic encephalopathy
CPT/HCPCS: 36415; 36416; 36600; 51702; 70450; 71045; 74176; 80048; 80053; 81001; 82550; 82803; 82962; 83605; 85025; 87040; 87086; 93970; 96361; 96365; 96372; 96375; 96376; 99285; G0378; J0696; J1644; J1815; J2405; J7030

== ENCOUNTER → 2021-06-16 12:46 | Outpatient (BNVA) | payer BC, SELFPAY | PROVIDERS: PCP Nurse Practitioner Family; Visit Provider Internal Medicine | DX: R76.8 Other specified abnormal immunological findings in serum (principal); R53.1 Weakness; M25.50 Pain in unspecified joint; Z11.59 Encounter for screening for other viral diseases; E55.9 Vitamin D deficiency, unspecified; G62.9 Polyneuropathy, unspecified | CPT/HCPCS: 99204 ==

== ENCOUNTER 2021-06-16 14:19 | Outpatient (CLI) | payer BC, SELFPAY ==
--- NOTE | 2021-06-16 14:29 | XRR_ITS ---
PROCEDURE INFORMATION: Exam: XR Right Hand Exam date and time: 06/16/2021 2:29 PM Age: 55 years old Clinical indication: Pain; Hand; Right; Additional info: M25.50 - pain in unspecified joint TECHNIQUE: Imaging protocol: XR Right hand. Views: 1 or 2 views. COMPARISON: No relevant prior studies available. FINDINGS: Bones/joints: Diffuse osseous demineralization. No fractures. Diffuse joint space narrowing of interphalangeal joint spaces with minor marginal osteophytic spurring. No focal bone erosion. No periosteal bone reaction changes. Soft tissues: Normal. XR/XR hand RT 2V [id number] IMPRESSION: No acute abnormality.
--- NOTE | 2021-06-16 14:29 | XRR_ITS ---
PROCEDURE INFORMATION: Exam: XR Left Hand Exam date and time: 06/16/2021 2:29 PM Age: 55 years old Clinical indication: Pain; Hand; Left; Additional info: M25.50 - pain in unspecified joint TECHNIQUE: Imaging protocol: XR Left hand. Views: 1 or 2 views. COMPARISON: No relevant prior studies available. FINDINGS: Bones/joints: Diffuse joint space narrowing of the interphalangeal joint spaces. Minor marginal osteophytic spurring. No fractures. No bone erosion. Joint space alignments intact. Diffuse osseous demineralization pattern. Soft tissues: Normal. XR/XR hand LT 2V [id number] IMPRESSION: No acute abnormalities.
[2021-06-16 15:20] LABS: Basophils % 0.5 %; Eosinophils # 0.2 10^3/uL (0.0-0.8); Eosinophils % 2.5 %; Hemoglobin 11.6 g/dL (11.5-15.3); Lymphocytes # 2.3 10^3/uL (0.8-4.8); Lymphocytes % 30.8 %; Mean Corpuscular HGB Conc 32.2 g/dL (30.0-36.0); Mean Corpuscular Hemoglobin 28.8 pg (28.0-34.0); Mean Corpuscular Volume 89.3 fL (81-99); Mean Platelet Volume 9.3 fL (7.4-10.4); Monocytes # 0.4 10^3/uL (0.2-0.9); Monocytes % 4.8 %; Neutrophils # 4.49 10^3/uL (1.8-7.7); Neutrophils % 61.1 %; Nucleated Red Blood Cells % 0 %; Platelet Count 352 10^3/cmm (130-400); Red Blood Count 4.03 10^6/uL (4.1-5.3); Red Cell Distribution Width 13.5 % (12.1-15.1); White Blood Count 7.3 10^3/uL (4.0-10.0)
[2021-06-16 15:24] LABS: Add Urine Microscopic? NO; Charge for UA Resulting for Rev
[2021-06-16 15:36] LABS: Bilirubin Urine Neg (Negative); Blood Urine Neg (Negative); Glucose Urine UA Norm (Normal); Ketones Urine Negative (Negative); Leukocyte Esterase Urine Negative (Negative); Nitrate Urine Negative (Negative); Protein Urine Neg (Negative); Urine Appearance Clear (CLEAR); Urine Color Yellow (Yellow); Urobilinogen Urine Norm (Negative); pH Urine 5 (5-7)
[2021-06-16 15:59] LABS: Calcium 8.9 mg/dL (8.5-10.5)
[2021-06-16 16:09] LABS: Alanine Aminotransferase 14 U/L (0-33); Alkaline Phosphatase 97 IU/L (35-105); Anion Gap 17.6 (5-19); Aspartate Amino Transferase 18 U/L (0-32); Blood Urea Nitrogen 12 mg/dL (6-20); Calcium 8.8 mg/dL (8.5-10.5); Carbon Dioxide 22 mmol/L (22-29); Chloride 102 mmol/L (98-107); Creatine Phosphokinase 53 U/L (26-192); Free T4 Free Thyroxine 1.67 ng/dL (0.82-1.77); Globulin 2.7 g/dL (1.3-4.6); Glucose 97 mg/dL (65-115); Osmolality Calculated 284 mOsm/kg (285-295); Potassium 4.6 mmol/L (3.5-5.1); Sodium 137 mmol/L (136-145); Thyroid Stimulating Hormone 5.16 uIU/mL (0.27-4.20); Total Bilirubin 0.4 mg/dL (0.15-1.2); Total Protein 6.7 g/dL (6.6-8.7)
[2021-06-16 16:16] LABS: Hepatitis B Core AB, Total Non-Reactive (Nonreactive); Hepatitis B Surface Antigen Non-Reactive (Nonreactive); Hepatitis C Virus Antibody Non-Reactive (Nonreactive)
[2021-06-16 16:18] LABS: Erythrocyte Sedimentation Rate 17 mm/hr (0-15)
[2021-06-16 20:46] LABS: Ferritin 258 ng/mL (15-150); Iron 55 ug/dL (37-145)
[2021-06-17 12:28] LABS: Lymes IGG WB <0.90 index
[2021-06-17 14:28] LABS: Cyclic Citrullinated Peptide <16 UNITS
[2021-06-18 13:48] LABS: CENTROMERE B ANTIBODY <1.0 NEG AI (<1.0 NEG); JO-1 ANTIBODY <1.0 NEG AI (<1.0 NEG); RNP ANTIBODY <1.0 NEG AI (<1.0 NEG); SCL-70 ANTIBODY <1.0 NEG AI (<1.0 NEG); SJOGREN'S ANTIBODY (SS-A) <1.0 NEG AI (<1.0 NEG); SM ANTIBODY <1.0 NEG AI (<1.0 NEG); SS-B <1.0 NEG AI (<1.0 NEG)
[2021-06-18 14:27] LABS: COMPLEMENT COMPONENT C3C 127 mg/dL (83-193); COMPLEMENT COMPONENT C4C 27 mg/dL (15-57)
[2021-06-18 15:08] LABS: COMPLEMENT, TOTAL (CH50) >60 U/mL (31-60)
[2021-06-18 15:18] LABS: THYROID PEROXIDASE ANTIBODIES 53 IU/mL (<9)
[2021-06-18 16:53] LABS: ANA SCREEN, IFA NEGATIVE (NEGATIVE)
[2021-06-21 00:02] LABS: DNA AB (DS) CRITHIDIA,IFA NEGATIVE (NEGATIVE)
== END 2021-06-16 14:20 | disposition home or self-care (01) ==
LOC: RAD 14:27
PROVIDERS: PCP Nurse Practitioner Family; Visit Provider Internal Medicine
DX: M25.50 Pain in unspecified joint (principal); Z11.59 Encounter for screening for other viral diseases; Z51.81 Encounter for therapeutic drug level monitoring
CPT/HCPCS: 36415; 73120; 80053; 81003; 82310; 82550; 82728; 83516; 83540; 83735; 83970; 84439; 84443; 85025; 85651; 86160; 86162; 86235; 86255; 86376; 86431; 86617; 86704; 86803; 87340